=== PATIENT | female | born 1985 | race Two or more races ===

== ENCOUNTER 2021-08-15 09:53 | Inpatient (IN) | payer OTHER ==
[2021-08-15] MEDS ORDERED: SODIUM CHLORIDE 1,000 ML IV STA ×2 (10:31→14:33)
[2021-08-15] MEDS ORDERED: ACETAMINOPHEN 1000 MG/100 ML BAG IVPB ONE (10:31)
[2021-08-15 11:40] LABS: BASO % 0.4 % (0-2.0); EOS % 2.6 % (0-4.5); HEMATOCRIT 40.2 % (32.4-45.2); MCH 31.6 pg (25.7-33.7); MCHC 34.8 g/dl (32.0-36.0); MEAN CELL VOLUME 90.9 fl (80-96); MEAN PLT VOLUME 7.4 fl (7.5-11.1); MONO % 5.8 % (3.8-10.2); NEUT % 78.2 % (42.8-82.8); PLATELET COUNT 246 10^3/uL (134-434); RBC 4.42 M/mm3 (3.60-5.2); RDW 12.8 % (11.6-15.6)
[2021-08-15 11:41] LABS: HCG,QUALITATIVE URINE Negative
[2021-08-15 11:43] LABS: EPI CELLS >36 /uL (0-25.1); HYALINE CASTS 3 /uL (0-3.1); PH,URINE 5.5 (5.0-8.0); URINE APPEARANCE CLOUDY; URINE BACTERIA 1051 /uL (0-1359); URINE BILIRUBIN NEGATIVE (NEGATIVE); URINE COLOR ORANGE; URINE GLUCOSE (UA) NEGATIVE (NEGATIVE); URINE KETONE NEGATIVE (NEGATIVE); URINE LEUK ESTERASE 2+ (NEGATIVE); URINE NITRITE NEGATIVE (NEGATIVE); URINE PROTEIN 1+ (NEGATIVE); URINE UROBILINOGEN 0.2 mg/dL (0.2-1.0); URINE WBC 205 /uL (0-25.8)
[2021-08-15 11:44] LABS: URINE RBC 229 /uL (0-23.9)
[2021-08-15] MEDS ORDERED: ACETAMINOPHEN INJECTION 100 ML IVPB ONE (11:53)
[2021-08-15 12:09] LABS: ALBUMIN 3.6 g/dl (3.4-5.0)
[2021-08-15 12:11] LABS: BLOOD UREA NITROGEN 8.8 mg/dL (7-18); CALCIUM 8.6 mg/dL (8.5-10.1)
[2021-08-15 12:15] LABS: BILIRUBIN,TOTAL 1.7 mg/dL (0.2-1); CREATININE 0.6 mg/dL (0.55-1.3)
[2021-08-15 12:19] LABS: TOT PROT 6.7 g/dl (6.4-8.2)
[2021-08-15] MEDS ORDERED: PIPERACILLIN/TAZOB 3.375 GM 3.375 GM in DEXTROSE 5%-WATER - 50 ML IVPB ONE (14:33)
[2021-08-15] MEDS ORDERED: PIPERACILLIN/TAZOB 3.375 GM 3.375 GM/50 ML BAG IVPB ONE (15:18)
[2021-08-15] MEDS ORDERED: ACETAMINOPHEN 325 MG TABLET (FP) PO PRN (15:20)
[2021-08-15 16:28] LABS: INR 1.15 (0.83-1.09); PROTHROMBIN TIME (PATIENT) 13.3 SEC (9.7-13.0)
[2021-08-15 16:31] LABS: ACTIVATED PTT 34.8 SECONDS (25.2-36.5)
[2021-08-15 21:15] VITALS: BMI 37.1
[2021-08-16] MEDS ORDERED: ACETAMINOPHEN 325 MG TABLET (FP) PO PRN ×2 (01:35→09:49)
[2021-08-16] MEDS ORDERED: cefTRIAXone SODIUM 1 GM VIAL ONE (10:18)
[2021-08-16] MEDS ORDERED: DEXTROSE 5%-WATER - 50 ML IVPB ONE (10:18)
[2021-08-16] MEDS: CEFTRIAXONE 1 GM in DEXTROSE 5%-WATER - 50 ML IVPB SCH (10:23)
[2021-08-16] MEDS: DEXTROSE 5%-0.45% SALINE 1,000 ML IV SCH (16:20)
[2021-08-17] MEDS: DEXTROSE 5%-0.45% SALINE 1,000 ML IV SCH ×2 (02:56→17:29)
[2021-08-17] MEDS ORDERED: DEXTROSE 5%-WATER - 50 ML IVPB ONE (09:10)
[2021-08-17] MEDS ORDERED: cefTRIAXone SODIUM 1 GM VIAL ONE (09:10)
[2021-08-17] MEDS: CEFTRIAXONE 1 GM in DEXTROSE 5%-WATER - 50 ML IVPB SCH (09:14)
[2021-08-17 11:35] LABS: BASO % 0.6 % (0-2.0); HEMATOCRIT 35.9 % (32.4-45.2); HEMOGLOBIN 12.3 GM/dL (10.7-15.3); LYMPH % 20.8 % (8-40); MCH 31.6 pg (25.7-33.7); MCHC 34.3 g/dl (32.0-36.0); MEAN CELL VOLUME 92.1 fl (80-96); MEAN PLT VOLUME 7.7 fl (7.5-11.1); MONO % 5.8 % (3.8-10.2); NEUT % 68.8 % (42.8-82.8); PLATELET COUNT 250 10^3/uL (134-434); RDW 12.7 % (11.6-15.6); WHITE BLOOD COUNT 6.1 K/mm3 (4.0-10.0)
[2021-08-17 11:53] LABS: CALCIUM 7.9 mg/dL (8.5-10.1)
[2021-08-17 11:54] LABS: BLOOD UREA NITROGEN 5.9 mg/dL (7-18); MAGNESIUM 2.3 mg/dL (1.8-2.4)
[2021-08-17 11:57] LABS: CREATININE 0.5 mg/dL (0.55-1.3); PHOSPHOROUS 2.8 mg/dL (2.5-4.9)
[2021-08-17 11:59] LABS: BILIRUBIN,TOTAL 0.7 mg/dL (0.2-1); TOT PROT 6.2 g/dl (6.4-8.2)
[2021-08-17 12:08] LABS: ALBUMIN 2.7 g/dl (3.4-5.0)
[2021-08-17] MEDS: ENOXAPARIN NA (PORCINE) 40 MG/0.4 ML DISP.SYRIN SQ SCH (13:05)
[2021-08-18] MEDS ORDERED: DEXTROSE 5%-WATER - 50 ML IVPB ONE (09:04)
[2021-08-18] MEDS ORDERED: cefTRIAXone SODIUM 1 GM VIAL ONE (09:04)
[2021-08-18] MEDS: ENOXAPARIN NA (PORCINE) 40 MG/0.4 ML DISP.SYRIN SQ SCH (09:06)
[2021-08-18] MEDS: CEFTRIAXONE 1 GM in DEXTROSE 5%-WATER - 50 ML IVPB SCH (09:06)
[2021-08-18 10:17] LABS: BASO % 0.7 % (0-2.0); EOS % 5.5 % (0-4.5); HEMATOCRIT 36.9 % (32.4-45.2); HEMOGLOBIN 12.7 GM/dL (10.7-15.3); LYMPH % 17.4 % (8-40); MCH 31.7 pg (25.7-33.7); MCHC 34.5 g/dl (32.0-36.0); MEAN CELL VOLUME 91.9 fl (80-96); MEAN PLT VOLUME 7.9 fl (7.5-11.1); MONO % 4.1 % (3.8-10.2); NEUT % 72.3 % (42.8-82.8); PLATELET COUNT 294 10^3/uL (134-434); RBC 4.01 M/mm3 (3.60-5.2); RDW 12.5 % (11.6-15.6); WHITE BLOOD COUNT 6.4 K/mm3 (4.0-10.0)
[2021-08-18 10:47] LABS: CALCIUM 8.2 mg/dL (8.5-10.1)
[2021-08-18 10:48] LABS: ALBUMIN 2.9 g/dl (3.4-5.0); BLOOD UREA NITROGEN 9.5 mg/dL (7-18); MAGNESIUM 2.1 mg/dL (1.8-2.4)
[2021-08-18 10:52] LABS: BILIRUBIN,TOTAL 0.7 mg/dL (0.2-1); CREATININE 0.6 mg/dL (0.55-1.3); PHOSPHOROUS 2.5 mg/dL (2.5-4.9); TOT PROT 6.4 g/dl (6.4-8.2)
[2021-08-18] MEDS: SODIUM CHLORIDE 1,000 ML IV SCH (17:12)
[2021-08-18] MEDS ORDERED: PIPERACILLIN/TAZOB 4.5 GM 4.5 GM in DEXTROSE 5%-WATER 100 ML IVPB ONE (23:01)
[2021-08-18] MEDS ORDERED: VANCOMYCIN/WATER 1,250 MG/250 ML BAG IVPB ONE (23:01)
[2021-08-19] MEDS ORDERED: PIPERACILLIN/TAZOBACTAM 4.5 GM VIAL IVPB ONE ×3 (00:05→17:03)
[2021-08-19] MEDS ORDERED: DEXTROSE 5%-WATER 100 ML IVPB ONE ×3 (00:05→17:04)
[2021-08-19] MEDS ORDERED: PIPERACILLIN/TAZOB 4.5 GM 4.5 GM in DEXTROSE 5%-WATER 100 ML IVPB ONE (08:10)
[2021-08-19 08:38] LABS: EOS % 3.9 % (0-4.5); HEMATOCRIT 36.8 % (32.4-45.2); LYMPH % 19.5 % (8-40); MCHC 35.4 g/dl (32.0-36.0); MEAN CELL VOLUME 90.4 fl (80-96); MONO % 6.6 % (3.8-10.2); PLATELET COUNT 301 10^3/uL (134-434); RBC 4.07 M/mm3 (3.60-5.2); RDW 12.2 % (11.6-15.6); WHITE BLOOD COUNT 6.2 K/mm3 (4.0-10.0)
[2021-08-19 09:02] LABS: BLOOD UREA NITROGEN 7.1 mg/dL (7-18); CALCIUM 8.4 mg/dL (8.5-10.1); MAGNESIUM 2.3 mg/dL (1.8-2.4)
[2021-08-19 09:05] LABS: PHOSPHOROUS 3.2 mg/dL (2.5-4.9)
[2021-08-19 09:06] LABS: CREATININE 0.5 mg/dL (0.55-1.3)
[2021-08-19] MEDS: ENOXAPARIN NA (PORCINE) 40 MG/0.4 ML DISP.SYRIN SQ SCH (09:39)
[2021-08-19] MEDS ORDERED: PIPERACILLIN/TAZOB 3.375 GM 3.375 GM in DEXTROSE 5%-WATER - 50 ML IVPB SCH (15:00)
[2021-08-19 16:32] LABS: MAGNESIUM 2.2 mg/dL (1.8-2.4)
[2021-08-19] MEDS: PIPERACILLIN/TAZOB 4.5 GM 4.5 GM in DEXTROSE 5%-WATER 100 ML IVPB SCH (17:34)
[2021-08-19] MEDS: SODIUM CHLORIDE 1,000 ML IV SCH (17:36)
[2021-08-20] MEDS ORDERED: DEXTROSE 5%-WATER 100 ML IVPB ONE ×3 (01:27→17:27)
[2021-08-20] MEDS ORDERED: PIPERACILLIN/TAZOBACTAM 4.5 GM VIAL IVPB ONE ×3 (01:27→17:27)
[2021-08-20] MEDS: PIPERACILLIN/TAZOB 4.5 GM 4.5 GM in DEXTROSE 5%-WATER 100 ML IVPB SCH ×3 (01:35→17:29)
[2021-08-20 08:35] LABS: BASO % 0.5 % (0-2.0); EOS % 4.5 % (0-4.5); HEMATOCRIT 36.3 % (32.4-45.2); HEMOGLOBIN 12.8 GM/dL (10.7-15.3); LYMPH % 26.4 % (8-40); MCH 31.6 pg (25.7-33.7); MCHC 35.3 g/dl (32.0-36.0); MEAN CELL VOLUME 89.6 fl (80-96); MEAN PLT VOLUME 7.3 fl (7.5-11.1); MONO % 6.5 % (3.8-10.2); NEUT % 62.1 % (42.8-82.8); PLATELET COUNT 293 10^3/uL (134-434); RBC 4.06 M/mm3 (3.60-5.2); RDW 12.4 % (11.6-15.6)
[2021-08-20 08:54] LABS: CALCIUM 8.2 mg/dL (8.5-10.1)
[2021-08-20 08:55] LABS: BLOOD UREA NITROGEN 6.5 mg/dL (7-18)
[2021-08-20 08:58] LABS: CREATININE 0.5 mg/dL (0.55-1.3); PHOSPHOROUS 3.2 mg/dL (2.5-4.9)
[2021-08-20] MEDS: ENOXAPARIN NA (PORCINE) 40 MG/0.4 ML DISP.SYRIN SQ SCH (09:59)
[2021-08-20] MEDS: SODIUM CHLORIDE 1,000 ML IV SCH ×2 (13:12→18:23)
[2021-08-21] MEDS ORDERED: DEXTROSE 5%-WATER 100 ML IVPB ONE ×2 (01:32→08:30)
[2021-08-21] MEDS ORDERED: PIPERACILLIN/TAZOBACTAM 4.5 GM VIAL IVPB ONE ×2 (01:32→08:29)
[2021-08-21] MEDS: PIPERACILLIN/TAZOB 4.5 GM 4.5 GM in DEXTROSE 5%-WATER 100 ML IVPB SCH ×2 (01:40→09:23)
[2021-08-21] MEDS: ENOXAPARIN NA (PORCINE) 40 MG/0.4 ML DISP.SYRIN SQ SCH (09:22)
[2021-08-21 10:29] VITALS: BP 113/64; PULSE 95; TEMP 98.4
== END 2021-08-21 14:43 | disposition home or self-care (01) | DRG 244 ==
LOC: JER 09:53 → JERFT 09:53 → JERBED 14:20 → J6S 20:05
PROVIDERS: ADMIT Internal Medicine; ATTEND Internal Medicine
DX: K57.20 Diverticulitis of large intestine with perforation and abscess without bleeding (principal); K59.00 Constipation, unspecified; R19.7 Diarrhea, unspecified; D72.829 Elevated white blood cell count, unspecified
CPT/HCPCS: 36415; 71046-TC-FY; 74177-TC; 80048; 80053; 81003; 82272; 83690; 83735; 84100; 84703; 85025; 85610; 85651; 85730; 86140; 87040; 93005; 93010; 99285-25; C9803-CS; Q9967; U0003; U0005

== ENCOUNTER 2021-10-14 04:49 | Day surgery (SDC) | payer OTHER ==
[2021-10-08 11:01] VITALS: BMI 37.4
[2021-10-14 08:35] VITALS: TEMP 97.8
[2021-10-14 09:23] VITALS: BP 113/78; PULSE 92
== END 2021-10-14 09:16 | disposition home or self-care (01) ==
LOC: JASU-ENDO 04:49
PROVIDERS: ATTEND Internal Medicine Gastroenterology
PROC: 0DJD8ZZ Inspection of Lower Intestinal Tract, Via Natural or Artificial Opening Endoscopic (ICD-10-PCS; principal; 2021-10-14 08:00)
DX: K57.30 Diverticulosis of large intestine without perforation or abscess without bleeding (principal); K64.8 Other hemorrhoids
CPT/HCPCS: 81025

== ENCOUNTER 2021-10-16 21:10 | Emergency (ER) | payer OTHER ==
[2021-10-16 21:16] VITALS: BMI 39.9
[2021-10-16] MEDS ORDERED: LACTATED RINGERS SOLUTION 1000 ML INFUS.BAG IV ONE (21:55)
[2021-10-16 22:41] LABS: EPI CELLS >36 /uL (0-25.1); HYALINE CASTS 1 /uL (0-3.1); PH,URINE 6.5 (5.0-8.0); URINE APPEARANCE CLOUDY; URINE BACTERIA 248 /uL (0-1359); URINE BILIRUBIN NEGATIVE (NEGATIVE); URINE COLOR YELLOW; URINE GLUCOSE (UA) NEGATIVE (NEGATIVE); URINE KETONE NEGATIVE (NEGATIVE); URINE LEUK ESTERASE TRACE (NEGATIVE); URINE NITRITE NEGATIVE (NEGATIVE); URINE PROTEIN NEGATIVE (NEGATIVE); URINE RBC 11 /uL (0-23.9); URINE UROBILINOGEN 0.2 mg/dL (0.2-1.0); URINE WBC 30 /uL (0-25.8)
[2021-10-16 22:55] LABS: BASO % 0.9 % (0-2.0); EOS % 5.6 % (0-4.5); HEMATOCRIT 38.5 % (32.4-45.2); HEMOGLOBIN 13.4 GM/dL (10.7-15.3); LYMPH % 18.2 % (8-40); MCH 31.6 pg (25.7-33.7); MCHC 34.9 g/dl (32.0-36.0); MEAN CELL VOLUME 90.6 fl (80-96); MEAN PLT VOLUME 7.3 fl (7.5-11.1); MONO % 8.8 % (3.8-10.2); NEUT % 66.5 % (42.8-82.8); PLATELET COUNT 247 10^3/uL (134-434); RBC 4.25 M/mm3 (3.60-5.2); RDW 12.9 % (11.6-15.6); WHITE BLOOD COUNT 6.5 K/mm3 (4.0-10.0)
[2021-10-16 23:14] LABS: CALCIUM 8.7 mg/dL (8.5-10.1)
[2021-10-16 23:15] LABS: ALBUMIN 3.6 g/dl (3.4-5.0); BLOOD UREA NITROGEN 7.2 mg/dL (7-18)
[2021-10-16 23:18] LABS: CREATININE 0.6 mg/dL (0.55-1.3)
[2021-10-16 23:19] LABS: TOT PROT 6.9 g/dl (6.4-8.2)
[2021-10-16 23:20] LABS: BILIRUBIN,TOTAL 0.8 mg/dL (0.2-1)
[2021-10-17 01:35] VITALS: BP 127/84; TEMP 99.8
[2021-10-17 01:46] VITALS: PULSE 98
== END 2021-10-17 01:56 | disposition home or self-care (01) ==
LOC: JER 21:10
DX: R10.30 Lower abdominal pain, unspecified (principal); R00.0 Tachycardia, unspecified
CPT/HCPCS: 36415; 80053; 81003; 82962; 85025; 87086; 93005; 93010; 99284-25

== ENCOUNTER 2022-03-11 15:54 | Emergency (ER) | payer OTHER ==
[2022-03-11 16:30] VITALS: RESP 18; TEMP 98.1; BMI 39.3
[2022-03-11] MEDS ORDERED: SODIUM CHLORIDE 0.9% 500 ML INFUS.BAG IV ONE (19:45)
[2022-03-11] MEDS ORDERED: ACETAMINOPHEN 1000 MG/100 ML BAG IVPB ONE (19:45)
[2022-03-11 19:47] LABS: BASO % 0.5 % (0-2.0); EOS % 2.4 % (0-4.5); HEMATOCRIT 40.7 % (32.4-45.2); HEMOGLOBIN 14.1 GM/dL (10.7-15.3); LYMPH % 5.6 % (8-40); MCHC 34.7 g/dl (32.0-36.0); MEAN CELL VOLUME 92.1 fl (80-96); MEAN PLT VOLUME 7.2 fl (7.5-11.1); MONO % 5.2 % (3.8-10.2); NEUT % 86.3 % (42.8-82.8); PLATELET COUNT 214 10^3/uL (134-434); RBC 4.41 M/mm3 (3.60-5.2); RDW 12.9 % (11.6-15.6); WHITE BLOOD COUNT 10.1 K/mm3 (4.0-10.0)
[2022-03-11 19:52] LABS: EPI CELLS >36 /uL (0-25.1); HYALINE CASTS 3 /uL (0-3.1); PH,URINE 5.5 (5.0-8.0); URINE APPEARANCE CLOUDY; URINE BILIRUBIN 1+ (NEGATIVE); URINE COLOR DK YELLOW; URINE GLUCOSE (UA) NEGATIVE (NEGATIVE); URINE KETONE 2+ (NEGATIVE); URINE LEUK ESTERASE 1+ (NEGATIVE); URINE NITRITE POSITIVE (NEGATIVE); URINE PROTEIN 1+ (NEGATIVE); URINE RBC 108 /uL (0-23.9); URINE WBC 54 /uL (0-25.8)
[2022-03-11 19:53] LABS: HCG,QUALITATIVE URINE Negative
[2022-03-11 20:03] LABS: ALBUMIN 3.5 g/dl (3.4-5.0); BLOOD UREA NITROGEN 10.1 mg/dL (7-18); CALCIUM 8.8 mg/dL (8.5-10.1)
[2022-03-11 20:04] LABS: INR 1.25 (0.83-1.09); PROTHROMBIN TIME (PATIENT) 14.4 SEC (9.7-13.0)
[2022-03-11 20:05] LABS: CREATININE 0.6 mg/dL (0.55-1.3)
[2022-03-11 20:08] LABS: BILIRUBIN,TOTAL 2.6 mg/dL (0.2-1); TOT PROT 6.9 g/dl (6.4-8.2)
[2022-03-11] MEDS ORDERED: CIPROFLOXACIN 400 MG/D5W 400 MG/200 ML IVPB IVPB ONE (22:03)
[2022-03-11] MEDS ORDERED: metroNIDAZOLE 250 MG TABLET PO ONE (22:05)
[2022-03-11] MEDS ORDERED: CIPROFLOXACIN 500 MG TABLET (RESTRICTED TO ID) PO ONE (22:05)
[2022-03-11] MEDS ORDERED: metroNIDAZOLE 250 MG TABLET ONE (22:07)
[2022-03-11 22:24] VITALS: BP 118/78; PULSE 89
== END 2022-03-11 22:24 | disposition home or self-care (01) ==
LOC: JER 15:54
PROC: 3E0333Z Introduction of Anti-inflammatory into Peripheral Vein, Percutaneous Approach (ICD-10-PCS; principal; 2022-03-11)
PROC: 3E03329 Introduction of Other Anti-infective into Peripheral Vein, Percutaneous Approach (ICD-10-PCS; 2022-03-11)
PROC: 3E03329 Introduction of Other Anti-infective into Peripheral Vein, Percutaneous Approach (ICD-10-PCS; 2022-03-11)
DX: K57.92 Diverticulitis of intestine, part unspecified, without perforation or abscess without bleeding (principal)
CPT/HCPCS: 36415; 74177-TC; 80053; 81003; 84703; 85025; 85610; 86850; 86900; 86901; 87086; 99285-25; Q9967

== ENCOUNTER 2022-05-19 04:43 | Inpatient (IN) | payer OTHER ==
[2022-05-14 14:49] VITALS: BMI 39.4
[2022-05-19] MEDS ORDERED: BUPIVACAINE HCL/PF 0.25% (2.5MG/ML) 10 ML VIAL ONE (09:48)
[2022-05-19] MEDS ORDERED: ROCURONIUM BROMIDE 50 MG/5 ML SYRINGE ONE ×2 (10:10→16:06)
[2022-05-19] MEDS ORDERED: PROPOFOL 20 ML ONE (10:10)
[2022-05-19] MEDS ORDERED: MIDAZOLAM HCL 2 MG/2 ML SINGLE DOSE VIAL ONE (10:10)
[2022-05-19] MEDS ORDERED: LIDOCAINE HCL/PF 2% SDV 5ML VIAL ONE (10:13)
[2022-05-19] MEDS ORDERED: cefOXitin SODIUM 2 GM VIAL (RESTRICTED TO ID) IVPB ONE (10:36)
[2022-05-19] MEDS ORDERED: ACETAMINOPHEN INJECTION 100 ML IVPB ONE (12:43)
[2022-05-19] MEDS ORDERED: HEPARIN NA (PORCINE) 5,000 UNITS/ML 1ML VIAL ONE (13:06)
[2022-05-19] MEDS ORDERED: cefOXitin SODIUM 1 GM VIAL (RESTRICTED TO ID) IVPB ONE (13:35)
[2022-05-19] MEDS ORDERED: BUPIVACAINE HCL/PF 0.25% (2.5MG/ML) 10 ML VIAL IJ ONE (13:48)
[2022-05-19] MEDS ORDERED: INDOCYANINE GREEN 25 MG/10 ML VIAL IVPUSH ONE (17:13)
[2022-05-19] MEDS ORDERED: HYDROmorphone HCl 2 MG/ML VIAL IVPUSH PRN ×2 (18:41)
[2022-05-19] MEDS ORDERED: PROMETHAZINE HCL 25 MG/1 ML VIAL IVPUSH PRN (18:41)
[2022-05-19] MEDS ORDERED: ONDANSETRON 4 MG/2 ML VIAL IVPUSH PRN ×3 (18:41→19:13)
[2022-05-19] MEDS ORDERED: LACTATED RINGERS SOLUTION 1,000 ML IV SCH (18:45)
[2022-05-19] MEDS ORDERED: NEOSTIGMINE METHYLSULFATE 0.5 MG/ML - 10 ML MDV ONE (18:45)
[2022-05-19] MEDS ORDERED: ACETAMINOPHEN 325 MG TABLET (FP) PO PRN (19:09)
[2022-05-19] MEDS ORDERED: oxyCODONE HCL 5 MG TABLET PO PRN (19:12)
[2022-05-19] MEDS ORDERED: DEXTROSE 5%-0.45% SALINE 1,000 ML IV SCH (19:15)
[2022-05-19] MEDS ORDERED: KETOROLAC TROMETHAMINE 30 MG/1 ML VIAL ONE (19:16)
[2022-05-19] MEDS: KETOROLAC TROMETHAMINE 15 MG/ML VIAL IVPUSH SCH (19:17)
[2022-05-19] MEDS ORDERED: morphine SULFATE 4 MG/ML VIAL IVPUSH PRN (20:32)
[2022-05-19] MEDS: ACETAMINOPHEN 1000 MG/100 ML BAG IVPB SCH (22:23)
[2022-05-20] MEDS: ACETAMINOPHEN 1000 MG/100 ML BAG IVPB SCH ×5 (00:55→17:59)
[2022-05-20] MEDS: KETOROLAC TROMETHAMINE 15 MG/ML VIAL IVPUSH SCH ×2 (02:18→08:06)
[2022-05-20] MEDS ORDERED: CEFOXITIN SODIUM 2 GM in DEXTROSE 5%-WATER - 100 ML IVPB ONE (06:08)
[2022-05-20] MEDS ORDERED: SODIUM CHLORIDE 500 ML IV STA (06:14)
[2022-05-20] MEDS: SODIUM CHLORIDE 1,000 ML IV SCH (06:40)
[2022-05-20] MEDS: ENOXAPARIN NA (PORCINE) 40 MG/0.4 ML DISP.SYRIN SQ SCH (09:17)
[2022-05-20] MEDS: BUDESONIDE/FORMETEROL FUMARATE 80/4.5 mcg INHALER IH SCH ×2 (09:32→23:00)
[2022-05-20 10:26] LABS: HEMATOCRIT 34.6 % (32.4-45.2); HEMOGLOBIN 11.9 GM/dL (10.7-15.3); MCH 31.4 pg (25.7-33.7); MCHC 34.4 g/dl (32.0-36.0); MEAN CELL VOLUME 91.2 fl (80-96); MEAN PLT VOLUME 7.6 fl (7.5-11.1); PLATELET COUNT 281 10^3/uL (134-434); RDW 13.4 % (11.6-15.6)
[2022-05-20 11:31] LABS: CALCIUM 7.9 mg/dL (8.5-10.1)
[2022-05-20 11:32] LABS: BLOOD UREA NITROGEN 8.5 mg/dL (7-18)
[2022-05-20 11:35] LABS: CREATININE 0.6 mg/dL (0.55-1.3)
[2022-05-21] MEDS: ACETAMINOPHEN 1000 MG/100 ML BAG IVPB SCH ×2 (01:00→05:26)
[2022-05-21] MEDS ORDERED: ACETAMINOPHEN 500 MG TABLET (FP) PO SCH (09:00)
[2022-05-21] MEDS: SODIUM CHLORIDE 1,000 ML IV SCH ×2 (09:42→12:44)
[2022-05-21] MEDS: ENOXAPARIN NA (PORCINE) 40 MG/0.4 ML DISP.SYRIN SQ SCH (09:44)
[2022-05-21] MEDS ORDERED: KETOROLAC TROMETHAMINE 30 MG/1 ML VIAL IVPUSH SCH ×2 (11:00→12:00)
[2022-05-21] MEDS: KETOROLAC TROMETHAMINE 30 MG/1 ML VIAL IVPUSH SCH ×2 (11:09→11:33)
[2022-05-21] MEDS: BUDESONIDE/FORMETEROL FUMARATE 80/4.5 mcg INHALER IH SCH ×2 (11:11→21:57)
[2022-05-21 11:19] LABS: BASO % 0.6 % (0-2.0); EOS % 1.5 % (0-4.5); HEMATOCRIT 31.5 % (32.4-45.2); HEMOGLOBIN 11.1 GM/dL (10.7-15.3); LYMPH % 20.5 % (8-40); MCH 32.3 pg (25.7-33.7); MCHC 35.3 g/dl (32.0-36.0); MEAN CELL VOLUME 91.7 fl (80-96); MEAN PLT VOLUME 7.7 fl (7.5-11.1); MONO % 6.4 % (3.8-10.2); PLATELET COUNT 239 10^3/uL (134-434); RBC 3.44 M/mm3 (3.60-5.2); RDW 13.5 % (11.6-15.6); WHITE BLOOD COUNT 7.3 K/mm3 (4.0-10.0)
[2022-05-21 11:49] LABS: ALBUMIN 3.2 g/dl (3.4-5.0); CALCIUM 7.8 mg/dL (8.5-10.1)
[2022-05-21 11:50] LABS: BLOOD UREA NITROGEN 4.4 mg/dL (7-18)
[2022-05-21 11:52] LABS: CREATININE 0.4 mg/dL (0.55-1.3)
[2022-05-21 11:54] LABS: BILIRUBIN,TOTAL 1.1 mg/dL (0.2-1); TOT PROT 5.8 g/dl (6.4-8.2)
[2022-05-21] MEDS ORDERED: ACETAMINOPHEN 500 MG TABLET (FP) PO PRN (12:00)
[2022-05-21] MEDS ORDERED: POTASSIUM CHLORIDE TABS 20 MEQ TABLET.ER (FP) PO ONE (12:04)
[2022-05-21] MEDS: ACETAMINOPHEN 500 MG TABLET (FP) PO SCH ×2 (17:49→21:59)
[2022-05-22] MEDS: IBUPROFEN 600 MG TABLET (FP) PO SCH ×3 (00:34→17:36)
[2022-05-22] MEDS: ACETAMINOPHEN 500 MG TABLET (FP) PO SCH ×4 (06:49→23:09)
[2022-05-22 09:45] LABS: BASO % 0.5 % (0-2.0); EOS % 3.8 % (0-4.5); HEMATOCRIT 34.9 % (32.4-45.2); LYMPH % 21.9 % (8-40); MCH 31.5 pg (25.7-33.7); MCHC 34.4 g/dl (32.0-36.0); MEAN CELL VOLUME 91.5 fl (80-96); MEAN PLT VOLUME 7.3 fl (7.5-11.1); NEUT % 67.8 % (42.8-82.8); PLATELET COUNT 244 10^3/uL (134-434); RBC 3.81 M/mm3 (3.60-5.2); RDW 13.6 % (11.6-15.6); WHITE BLOOD COUNT 7.5 K/mm3 (4.0-10.0)
[2022-05-22] MEDS: BUDESONIDE/FORMETEROL FUMARATE 80/4.5 mcg INHALER IH SCH ×2 (10:11→23:14)
[2022-05-22] MEDS: ENOXAPARIN NA (PORCINE) 40 MG/0.4 ML DISP.SYRIN SQ SCH (10:11)
[2022-05-22 10:21] LABS: ALBUMIN 3.1 g/dl (3.4-5.0); BLOOD UREA NITROGEN 6.1 mg/dL (7-18); MAGNESIUM 2.1 mg/dL (1.8-2.4)
[2022-05-22 10:24] LABS: CALCIUM 8.4 mg/dL (8.5-10.1); CREATININE 0.5 mg/dL (0.55-1.3)
[2022-05-22 22:33] VITALS: RESP 20
[2022-05-23] MEDS: IBUPROFEN 600 MG TABLET (FP) PO SCH ×2 (01:38→08:24)
[2022-05-23] MEDS: ACETAMINOPHEN 500 MG TABLET (FP) PO SCH ×2 (05:37→11:53)
[2022-05-23] MEDS: ENOXAPARIN NA (PORCINE) 40 MG/0.4 ML DISP.SYRIN SQ SCH (09:36)
[2022-05-23] MEDS: BUDESONIDE/FORMETEROL FUMARATE 80/4.5 mcg INHALER IH SCH (09:36)
[2022-05-23 09:44] LABS: BASO % 0.5 % (0-2.0); EOS % 4.7 % (0-4.5); HEMATOCRIT 37.7 % (32.4-45.2); HEMOGLOBIN 13.2 GM/dL (10.7-15.3); LYMPH % 22.3 % (8-40); MCH 32.1 pg (25.7-33.7); MCHC 35.1 g/dl (32.0-36.0); MEAN CELL VOLUME 91.4 fl (80-96); MEAN PLT VOLUME 7.4 fl (7.5-11.1); MONO % 5.4 % (3.8-10.2); NEUT % 67.1 % (42.8-82.8); PLATELET COUNT 291 10^3/uL (134-434); RBC 4.12 M/mm3 (3.60-5.2); RDW 13.5 % (11.6-15.6)
[2022-05-23 10:05] LABS: CALCIUM 8.8 mg/dL (8.5-10.1)
[2022-05-23 10:06] LABS: ALBUMIN 3.4 g/dl (3.4-5.0); BLOOD UREA NITROGEN 11.4 mg/dL (7-18); CREATININE 0.6 mg/dL (0.55-1.3); MAGNESIUM 2.1 mg/dL (1.8-2.4)
[2022-05-23 10:08] LABS: TOT PROT 6.5 g/dl (6.4-8.2)
[2022-05-23 13:16] VITALS: BP 109/70; PULSE 96; TEMP 99
== END 2022-05-23 14:51 | disposition home or self-care (01) | DRG 221 ==
LOC: J2C 04:43 → J8W 22:52
PROVIDERS: ADMIT Surgery; ATTEND Internal Medicine
PROC: 0DJD8ZZ Inspection of Lower Intestinal Tract, Via Natural or Artificial Opening Endoscopic (ICD-10-PCS; 2022-05-19)
PROC: 8E0W8CZ Robotic Assisted Procedure of Trunk Region, Via Natural or Artificial Opening Endoscopic (ICD-10-PCS; 2022-05-19)
PROC: 0DTN4ZZ Resection of Sigmoid Colon, Percutaneous Endoscopic Approach (ICD-10-PCS; principal; 2022-05-19 10:00)
DX: K57.30 Diverticulosis of large intestine without perforation or abscess without bleeding (principal); J45.909 Unspecified asthma, uncomplicated; E66.9 Obesity, unspecified; Z68.39 Body mass index [BMI] 39.0-39.9, adult
CPT/HCPCS: 36415; 80048; 80053; 81025; 83735; 85025; 85027; 86140; 86850; 86900; 86901; 88307-TC; 94010; 94760; 97116-GP; 97161-GP; J1644

== ENCOUNTER 2025-01-17 22:39 | Emergency (ER) | payer OTHER ==
[2025-01-17 22:49] VITALS: BMI 37.1
[2025-01-18 00:38] LABS: URINE APPEARANCE CLEAR; URINE BILIRUBIN NEGATIVE (NEGATIVE); URINE COLOR YELLOW; URINE GLUCOSE (UA) NEGATIVE (NEGATIVE); URINE KETONE NEGATIVE (NEGATIVE); URINE LEUK ESTERASE 1+ (NEGATIVE); URINE NITRITE NEGATIVE (NEGATIVE); URINE PROTEIN NEGATIVE (NEGATIVE); URINE UROBILINOGEN 0.2 mg/dL (0.2-1.0)
[2025-01-18] MEDS: ACETAMINOPHEN 325 MG TABLET (FP) PO ONE (00:38)
[2025-01-18 01:43] VITALS: RESP 16
[2025-01-18 02:31] VITALS: BP 107/74; PULSE 70; TEMP 97.9
[2025-01-18 05:15] LABS: URINE RBC 12.0 /uL (0-23.9); URINE WBC 45.9 /uL (0-25.8)
[2025-01-18 05:16] LABS: EPI CELLS 61.7 /uL (0-25.1); HYALINE CASTS 0.37 /uL (0-3.1); URINE BACTERIA 165.1 /uL (0-1359)
== END 2025-01-18 02:43 | disposition home or self-care (01) ==
LOC: JER 22:39
DX: R10.32 Left lower quadrant pain (principal); R35.0 Frequency of micturition; R39.15 Urgency of urination; R14.0 Abdominal distension (gaseous); R61 Generalized hyperhidrosis; R00.0 Tachycardia, unspecified
CPT/HCPCS: 81003; 84703; 99283-25